=== PATIENT | male | born 1970 | race American Indian/Alaskan Native ===

== ENCOUNTER 2017-08-02 17:33 | Emergency (ER) | payer SELFPAY ==
[2017-08-02] MEDS ORDERED: CATAPRES ONE (18:20)
[2017-08-02] MEDS ORDERED: CATAPRES PO ONE (18:20)
[2017-08-02 18:41] LABS: Basophils % (Auto) 0.7 % (0.0-1.8); Eosinophils # (Auto) 0.1 K/mm3 (0.0-0.4); Eosinophils % (Auto) 1.2 % (0.0-4.3); Hematocrit 39.7 % (35.5-45.6); Hemoglobin 13.4 gm/dl (11.8-15.2); Mean Corpuscular HGB Conc 34 % (32-34); Mean Corpuscular Hemoglobin 29 pg (28-32); Mean Corpuscular Volume 87 fl (84-94); Monocytes # (Auto) 0.3 K/mm3 (0.0-0.8); Monocytes % (Auto) 5.4 % (0.0-7.3); Platelet Count 205 K/mm3 (140-440); Red Blood Count 4.59 M/mm3 (3.65-5.03); Red Cell Distribution Width 13.9 % (13.2-15.2)
[2017-08-02 18:50] LABS: INR 1.02 (0.87-1.13)
[2017-08-02 18:51] LABS: Partial Thromboplastin Time 26.9 Sec. (24.2-36.6)
[2017-08-02 18:59] LABS: BUN/Creatinine Ratio 14; Blood Urea Nitrogen 30 mg/dL (9-20); Calcium 8.7 mg/dL (8.4-10.2); Hemolysis Index 1
--- NOTE | 2017-08-02 20:00 | Cat Scan Report ---
FINAL REPORT EXAM: CT HEAD/BRAIN WO CON HISTORY: HIGH B/P WITH HEADACHE AND LEFT FACIAL TWITCHING TECHNIQUE: CT head without contrast PRIORS: None. FINDINGS: No acute intra-axial or extra-axial hemorrhage is identified. There is no evidence of midline shift or mass effect. The ventricles and sulci are within normal limits. Doran-white matter differentiation is intact. No acute parenchymal abnormalities seen. Bony calvarium is grossly intact. Visualized portions of the mastoids and paranasal sinuses are unremarkable. IMPRESSION: Negative CT head
[2017-08-02 21:09] VITALS: BP 150/108
--- NOTE | 2017-08-02 21:09 | Emergency Department Report ---
ED General Adult HPI - General Chief complaint: Headache Stated complaint: HEAD PAIN Time Seen by Provider: 08/02/17 20:04 Source: patient Mode of arrival: Ambulatory Limitations: No Limitations - History of Present Illness Initial comments: Mr. Miranda is a 46 yo male who presents with headache and chest pain. He had mild headache which is resolved. He's had mild chest pain which is resolved. He stated the chest pain was worse when he moved and lifted heavy objects. He' s been in the [place] for 8-9 months. He moved here from [facility]. He was frustrated that he was unable to fill his medication [id number]. He' s not accustomed to requiring a physician order for his blood pressure medication. He normally obtainshis medication [id number]. He does recall taking lisinopril. For the past 8-9 years that he has had facial droop, left side which has persisted with twitching. He denies arm and leg paralysis. Unclear if this is Saunders palsy or stroke. However the facial droop on the left is not new. He is currently symptom-free. Severity scale (0 -10): 3 - Related Data Previous Rx's Medication Instructions Recorded Last Taken Type Hydrochlorothiazide [HCTZ] 25 mg PO QDAY 90 Days #90 tablet 08/02/17 Unknown Rx amLODIPine [Norvasc] 10 mg PO DAILY 90 Days #90 tab 08/02/17 Unknown Rx Allergies Allergy/AdvReac Type Severity Reaction Status Date / Time No Known Allergies Allergy Unverified 08/02/17 18:04 ED Review of Systems ROS: Stated complaint: HEAD PAIN Other details as noted in HPI Comment: All other systems reviewed and negative Constitutional: denies: fever, malaise Cardiovascular: denies: chest pain Gastrointestinal: denies: abdominal pain, nausea, vomiting ED Past Medical Hx - Past Medical History Previous Medical History?: Yes Hx Hypertension: Yes 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) - Surgical History Past Surgical History?: No - Social History Smoking Status: Never Smoker Substance Use Type: Alcohol, Prescribed - Medications Home Medications: Home Medications Medication Instructions Recorded Confirmed Last Taken Type Hydrochlorothiazide [HCTZ] 25 mg PO QDAY 90 Days #90 tablet 08/02/17 Unknown Rx amLODIPine [Norvasc] 10 mg PO DAILY 90 Days #90 tab 08/02/17 Unknown Rx ED Physical Exam - General Limitations: No Limitations General appearance: alert, in no apparent distress - Head Head exam: Present: atraumatic, normocephalic - Eye Eye exam: Present: normal appearance - ENT ENT exam: Present: mucous membranes moist - Neck Neck exam: Present: normal inspection - Respiratory Respiratory exam: Present: normal lung sounds bilaterally. Absent: respiratory distress, wheezes, rales, rhonchi - Cardiovascular Cardiovascular Exam: Present: regular rate, normal rhythm. Absent: systolic murmur, diastolic murmur, rubs, gallop - GI/Abdominal GI/Abdominal exam: Present: soft, normal bowel sounds. Absent: distended, tenderness, guarding, rebound - Rectal Rectal exam: Present: deferred - Extremities Exam Extremities exam: Present: normal inspection - Back Exam Back exam: Present: normal inspection - Neurological Exam Neurological exam: Present: alert, oriented X3, CN II-XII intact (with the exception of left facial droop and intermittent left facial twitching), normal gait, other (motor 5 out of 5 in all 4 extremity sensation light touch intact [id number] without dysmetria ). Absent: motor sensory deficit - Psychiatric Psychiatric exam: Present: normal affect, normal mood - Skin Skin exam: Present: warm, dry, intact, normal color. Absent: rash ED Course Vital Signs 08/02/17 08/02/17 08/02/17 18:04 18:26 19:03 Temperature 98.9 F 98.2 F Pulse Rate 91 H 91 H 75 Respiratory 18 18 Rate Blood Pressure 231/137 231/137 Blood Pressure [Right] O2 Sat by Pulse 99 99 Oximetry 08/02/17 08/02/17 19:30 20:53 Temperature Pulse Rate 66 62 Respiratory 20 20 Rate Blood Pressure Blood Pressure 152/96 155/98 [Right] O2 Sat by Pulse 100 Oximetry ED Medical Decision Making - Lab Data Result diagrams: 08/02/17 18:20 08/02/17 18:20 Laboratory Results - last 24 hr 08/02/17 08/02/17 08/02/17 18:20 18:20 18:20 WBC 6.0 RBC 4.59 Hgb 13.4 Hct 39.7 MCV 87 MCH 29 MCHC 34 RDW 13.9 Plt Count 205 Lymph % (Auto) 33.0 Scurry % (Auto) 5.4 Eos % (Auto) 1.2 Baso % (Auto) 0.7 Lymph # 2.0 Scurry # 0.3 Eos # 0.1 Baso # 0.0 Seg Neutrophils % 59.7 Seg Neutrophils # 3.6 PT 13.9 INR 1.02 APTT 26.9 Thrombin Time Sodium 144 Potassium 4.2 Chloride 105.8 Carbon Dioxide 27 Anion Gap 15 BUN 30 H Creatinine 2.1 H Estimated GFR 34 BUN/Creatinine Ratio 14 Glucose 147 H Calcium 8.7 Troponin T < 0.010 08/02/17 18:20 WBC RBC Hgb Hct MCV MCH MCHC RDW Plt Count Lymph % (Auto) Scurry % (Auto) Eos % (Auto) Baso % (Auto) Lymph # Scurry # Eos # Baso # Seg Neutrophils % Seg Neutrophils # PT INR APTT Thrombin Time 16.7 Sodium Potassium Chloride Carbon Dioxide Anion Gap BUN Creatinine Estimated GFR BUN/Creatinine Ratio Glucose Calcium Troponin T Vital Signs - 24 hr 08/02/17 08/02/17 08/02/17 18:04 18:26 19:03 Temperature 98.9 F 98.2 F Pulse Rate 91 H 91 H 75 Respiratory 18 18 Rate Blood Pressure 231/137 231/137 Blood Pressure [Right] O2 Sat by Pulse 99 99 Oximetry 08/02/17 08/02/17 08/02/17 19:30 20:53 21:08 Temperature Pulse Rate 66 62 64 Respiratory 20 20 20 Rate Blood Pressure Blood Pressure 152/96 155/98 150/108 [Right] O2 Sat by Pulse 100 97 Oximetry - Medical Decision Making Mr. Miranda presents with severely elevated blood pressure abnormal kidney function. I suspect chronic kidney disease related to severe uncontrolled hypertension. He is currently symptom-free. Chest pain atypical for ACS. I have prescribed amlodipine and hydrochlorothiazide. I did not refill lisinopril with abnormal kidney function. I referred him to outside clinic. I provided 90 day supply of both amlodipine and hydrochlorothiazide. Critical care attestation.: If time is entered above; I have spent that time in minutes in the direct care of this critically ill patient, excluding procedure time. ED Disposition Clinical Impression: Hypertensive urgency, Chronic kidney disease Disposition: DC-01 TO HOME OR SELFCARE Is pt being admited?: No Does the pt Need Aspirin: No Condition: Stable Instructions: Chronic Hypertension (ED) Prescriptions: amLODIPine [Norvasc] 10 mg PO DAILY 90 Days #90 tab Hydrochlorothiazide [HCTZ] 25 mg PO QDAY 90 Days #90 tablet Referrals: PRIMARY CARE, [Primary Care Provider] - 3-5 Days Time of Disposition: 21:13
== END 2017-08-02 21:35 | disposition home or self-care (01) ==
LOC: ED 17:33
DX: I16.0 Hypertensive urgency (principal); I12.9 Hypertensive chronic kidney disease with stage 1 through stage 4 chronic kidney disease, or unspecified chronic kidney disease; N18.9 Chronic kidney disease, unspecified; Z86.73 Personal history of transient ischemic attack (TIA), and cerebral infarction without residual deficits
CPT/HCPCS: 36415; 70450; 80048; 84484; 85025; 85610; 85670; 85730; 93005; 93010

== ENCOUNTER 2017-08-04 05:32 | Emergency (ER) | payer SELFPAY ==
[2017-08-04] MEDS ORDERED: ASPIRIN PO ONE (07:27)
[2017-08-04] MEDS ORDERED: CATAPRES PO ONE (07:29)
[2017-08-04 08:03] LABS: Basophils % (Auto) 0.3 % (0.0-1.8); Eosinophils % (Auto) 0.6 % (0.0-4.3); Hematocrit 43.7 % (35.5-45.6); Hemoglobin 14.9 gm/dl (11.8-15.2); Lymphocytes # (Auto) 1.5 K/mm3 (1.2-5.4); Mean Corpuscular HGB Conc 34 % (32-34); Mean Corpuscular Hemoglobin 29 pg (28-32); Mean Corpuscular Volume 86 fl (84-94); Monocytes # (Auto) 0.3 K/mm3 (0.0-0.8); Monocytes % (Auto) 5.4 % (0.0-7.3); Platelet Count 210 K/mm3 (140-440); Red Blood Count 5.08 M/mm3 (3.65-5.03); Red Cell Distribution Width 13.6 % (13.2-15.2)
[2017-08-04 08:20] LABS: Albumin 4.4 g/dL (3.9-5); Calcium 9.3 mg/dL (8.4-10.2)
[2017-08-04] MEDS ORDERED: ASPIRIN ONE (09:55)
--- NOTE | 2017-08-04 10:52 | Emergency Department Report ---
ED Chest Pain HPI - General Chief Complaint: High BP Stated Complaint: PRESSURE UP Time Seen by Provider: 08/04/17 10:32 Source: patient Mode of arrival: Ambulatory Limitations: No Limitations - History of Present Illness Initial Comments: Patient is a 46-year-old male who presents to emergency room with complaints of high blood pressure, chest pain, shortness of breath with exertion. Patient states that the pain woke him up this morning and is at a 2 out of 10. Patient describes the pain as a pressure and tightness in his left and right chest. Patient states it did not improve with blood pressure improvement. Patient states he's had some dyspnea on exertion that started at the same time this morning. Chest pressure going on for approximately 4 hours. Patient states his blood pressures been so advised and keeping him up at night. Patient states he just recently started a new blood pressure medication 2 days ago. Patient has a long history of blood pressure that only required one medication patient is now on 2 medications. Patient states the pain is better with rest. And worse with exertion. Patient states shortness of breath is at her with rest and worse with exertion. MD Complaint: chest pain -: Sudden Onset: during rest Pain Location: substernal, left chest, right chest Pain Radiation: none Severity: mild Severity scale (0 -10): 2 Quality: tightness, pressure Consistency: constant - Related Data Previous Rx's Medication Instructions Recorded Last Taken Type Hydrochlorothiazide [HCTZ] 25 mg PO QDAY 90 Days #90 tablet 08/02/17 08/04/17 Rx amLODIPine [Norvasc] 10 mg PO DAILY 90 Days #90 tab 08/02/17 08/04/17 Rx Pantoprazole [Protonix TAB] 20 mg PO QDAY #30 tablet. 08/04/17 Unknown Rx Allergies Allergy/AdvReac Type Severity Reaction Status Date / Time No Known Allergies Allergy Unverified 08/02/17 18:04 Heart Score - HEART Score History: Slightly suspicious EKG: Normal Age: 45-65 Risk factors: 1-2 risk factors Troponin: < normal limit HEART Score: 2 ED Review of Systems ROS: Stated complaint: PRESSURE UP Other details as noted in HPI Comment: All other systems reviewed and negative Constitutional: denies: chills, fever Eyes: denies: eye pain, eye discharge, vision change ENT: denies: ear pain, throat pain Respiratory: SOB with exertion. denies: cough, wheezing Cardiovascular: chest pain. 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 08/04/17 Unknown Rx ED Physical Exam - General Limitations: No Limitations General appearance: alert, in no apparent distress - Head Head exam: Present: atraumatic, normocephalic - Eye Eye exam: Present: normal appearance - ENT ENT exam: Present: mucous membranes moist - Neck Neck exam: Present: normal inspection - Respiratory Respiratory exam: Present: normal lung sounds bilaterally. Absent: respiratory distress - Cardiovascular Cardiovascular Exam: Present: regular rate, normal rhythm. Absent: systolic murmur, diastolic murmur, rubs, gallop - GI/Abdominal GI/Abdominal exam: Present: soft, normal bowel sounds - Rectal Rectal exam: Present: deferred - Extremities Exam Extremities exam: Present: normal inspection - Back Exam Back exam: Present: normal inspection - Neurological Exam Neurological exam: Present: alert, oriented X3 - Psychiatric Psychiatric exam: Present: normal affect, normal mood - Skin Skin exam: Present: warm, dry, intact, normal color. Absent: rash ED Course Vital Signs 08/04/17 08/04/17 08/04/17 05:31 07:15 08:27 Temperature 99.0 F 98.7 F Pulse Rate 116 H 89 Respiratory 22 20 Rate Blood Pressure 235/142 219/126 Blood Pressure 130/85 [Right] O2 Sat by Pulse 98 98 Oximetry 08/04/17 08/04/17 08/04/17 09:52 10:48 10:50 Temperature Pulse Rate 86 57 L 68 Respiratory 16 22 13 Rate Blood Pressure 153/103 Blood Pressure 130/86 [Right] O2 Sat by Pulse 99 99 Oximetry 08/04/17 08/04/17 08/04/17 11:00 11:10 11:20 Temperature Pulse Rate 55 L 54 L 69 Respiratory 21 23 12 Rate Blood Pressure 153/103 153/103 153/103 Blood Pressure [Right] O2 Sat by Pulse 100 99 99 Oximetry 08/04/17 08/04/17 08/04/17 11:30 11:40 11:50 Temperature Pulse Rate 57 L 68 53 L Respiratory 13 12 13 Rate Blood Pressure 153/103 153/103 153/103 Blood Pressure [Right] O2 Sat by Pulse 100 98 97 Oximetry 08/04/17 08/04/17 08/04/17 12:00 12:10 12:20 Temperature Pulse Rate 59 L 67 65 Respiratory 13 13 11 L Rate Blood Pressure 153/103 176/114 176/114 Blood Pressure [Right] O2 Sat by Pulse 98 100 99 Oximetry 08/04/17 08/04/17 08/04/17 12:30 12:40 12:50 Temperature Pulse Rate 64 64 58 L Respiratory 13 12 14 Rate Blood Pressure 176/114 176/114 176/114 Blood Pressure [Right] O2 Sat by Pulse 99 98 100 Oximetry 08/04/17 08/04/17 08/04/17 13:00 13:10 13:20 Temperature Pulse Rate 63 72 78 Respiratory 13 23 16 Rate Blood Pressure 176/114 176/114 176/114 Blood Pressure [Right] O2 Sat by Pulse 100 100 100 Oximetry 08/04/17 08/04/17 08/04/17 13:30 13:40 13:50 Temperature Pulse Rate 73 60 60 Respiratory 14 12 13 Rate Blood Pressure 176/114 176/114 176/114 Blood Pressure [Right] O2 Sat by Pulse 100 100 100 Oximetry 08/04/17 08/04/17 08/04/17 14:00 14:10 14:13 Temperature Pulse Rate 90 69 88 Respiratory 12 13 16 Rate Blood Pressure 165/96 165/96 Blood Pressure 153/103 165/85 [Right] O2 Sat by Pulse 99 99 100 Oximetry 08/04/17 08/04/17 08/04/17 14:20 14:30 14:40 Temperature Pulse Rate 79 61 61 Respiratory 22 17 17 Rate Blood Pressure 165/96 165/96 165/96 Blood Pressure [Right] O2 Sat by Pulse 98 100 100 Oximetry 08/04/17 08/04/17 08/04/17 14:50 15:00 15:10 Temperature Pulse Rate 64 79 71 Respiratory 16 33 H 28 H Rate Blood Pressure 165/96 165/96 165/96 Blood Pressure [Right] O2 Sat by Pulse 99 98 98 Oximetry 08/04/17 08/04/17 08/04/17 15:20 15:30 15:40 Temperature Pulse Rate 60 58 L 60 Respiratory 16 14 24 Rate Blood Pressure 165/96 165/96 165/96 Blood Pressure [Right] O2 Sat by Pulse 99 98 98 Oximetry 08/04/17 15:50 Temperature Pulse Rate 69 Respiratory 14 Rate Blood Pressure 165/96 Blood Pressure [Right] O2 Sat by Pulse 99 Oximetry - Reevaluation(s) Reevaluation #1: Initial cardiac workup is normal. We'll consult the hospitalist for admission. Discussed plan of care with patient. He agreed to put plan of care. Blood pressure better after clonidine. We'll continue to monitor patient. 08/04/17 11:00 Reevaluation #2: Discussed case with Dr. Wang. Dr. Wang to assume care of patient. 08/04/17 11:05 TONE score - Tone Score Age > 65: (0) No Aspirin use within the Past 7 Days: (0) No 3 or more CAD Risk Factors: (0) No 2 or more Angina events in past 24 hrs: (0) No Known CAD with more than 50% Stenosis: (0) No Elevated Cardiac Markers: (0) No ST Deviation Greater than 0.5mm: (0) No TONE Score: 0 ED Medical Decision Making - Lab Data Result diagrams: 08/04/17 07:36 08/04/17 07:36 - EKG Data -: EKG Interpreted by Pr EKG shows normal: sinus rhythm, intervals, QRS complexes Rate: normal - EKG Data Interpretation: other (inverted T waves) - Medical Decision Making Patient is a 46-year-old male that presents emergency room and hypertensive urgency and chest pain shortness of breath. Patient will be admitted to the hospitalist service for further evaluation and treatment. - Differential Diagnosis chest pain. ACS. Shortness of breath. Hypertensive urgency. Critical care attestation.: If time is entered above; I have spent that time in minutes in the direct care of this critically ill patient, excluding procedure time. ED Disposition Clinical Impression: Chronic kidney disease, Hypertensive urgency, Dyspnea on exertion Chest pain Qualifiers: Chest pain type: unspecified Qualified Code(s): R07.9 - Chest pain, unspecified Disposition: DC-01 TO HOME OR SELFCARE Is pt being admited?: Yes Does the pt Need Aspirin: No Condition: Serious Prescriptions: Pantoprazole [Protonix TAB] 20 mg PO QDAY #30 tablet. Time of Disposition: 11:14
--- NOTE | 2017-08-04 12:56 | History and Physical Report ---
History of Present Illness Chief complaint: My pressure is high, and my chest hurts History of present illness: 46 YO Male with HTN, Medication Noncompliance presents to ED for evaluation of chest pain. Pt seen and evaluated with Chest pain protocol. serial cardiac enzymes, ekg, and telemetry were negative for ischemia. D dimer was normal. Pt medically optimized and back to usual state of health. Pt found to have symptoms consistent with GERD. Pt initiated on PPI trail. Pt discharged home and instructed to f/u pcp 3-5 days with blood pressure log. Past History Past Medical History: hypertension Past Surgical History: No surgical history, Other (reviewed) Social history: , lives with family Family history: hypertension Medications and Allergies Allergies Allergy/AdvReac Type Severity Reaction Status Date / Time No Known Allergies Allergy Unverified 08/02/17 18:04 Home Medications Medication Instructions Recorded Confirmed Last Taken Type Hydrochlorothiazide [HCTZ] 25 mg PO QDAY 90 Days #90 tablet 08/02/17 08/04/17 Rx amLODIPine [Norvasc] 10 mg PO DAILY 90 Days #90 tab 08/02/17 08/04/17 08/04/17 Rx Pantoprazole [Protonix TAB] 20 mg PO QDAY #30 tablet. 08/04/17 Unknown Rx Review of Systems Constitutional: no weight loss, no weight gain, no fever, no chills Ears, nose, mouth and throat: no ear pain, no ear discharge, no tinnitis, no decreased hearing, no nose pain, no nasal congestion, no nasal discharge Cardiovascular: chest pain, high blood pressure, no orthopnea, no palpitations, no rapid/irregular heart beat, no edema, no syncope, no lightheadedness, no shortness of breath, no dyspnea on exertion, no paroxysmal nocturnal dyspnea, no claudication, no phlebitis Respiratory: no cough, no cough with sputum, no excessive sputum, no hemoptysis Gastrointestinal: no abdominal pain, no nausea, no vomiting, no diarrhea, no constipation Genitourinary Male: no dysuria, no hematuria, no flank pain, no discharge, no urinary frequency, no urinary hesitancy Rectal: no pain, no incontinence, no bleeding Musculoskeletal: no neck stiffness, no neck pain, no shooting arm pain, no arm numbness/tingling, no low back pain Integumentary: no rash, no pruritis, no redness, no sores, no wounds Neurological: no transient paralysis, no paralysis, no weakness, no parathesias Psychiatric: no anxiety, no memory loss, no change in sleep habits, no sleep disturbances, no insomnia Endocrine: no cold intolerance, no heat intolerance, no polyphagia, no excessive thirst, no polydipsia Hematologic/Lymphatic: no easy bruising, no easy bleeding, no lymphadenopathy, no lymphedema Allergic/Immunologic: no urticaria, no allergic rhinitis, no wheezing, no persistent infections, no anaphylaxis, no angioedema Exam - Constitutional Vitals: Temp Pulse Resp BP Pulse Ox 98.7 F 86 16 130/86 99 08/04/17 07:15 08/04/17 09:52 08/04/17 09:52 08/04/17 09:52 08/04/17 09:52 General appearance: Present: obese - EENT Eyes: Present: PERRL ENT: hearing intact, clear oral mucosa - Neck Neck: Present: supple, normal ROM - Respiratory Respiratory effort: normal Respiratory: bilateral: CTA - Cardiovascular Heart Sounds: Present: S1 & S2. Absent: rub, click - Extremities Extremities: pulses symmetrical, No edema Peripheral Pulses: within normal limits - Abdominal General gastrointestinal: Present: soft, non-tender, non-distended, normal bowel sounds Male genitourinary: Present: normal - Integumentary Integumentary: Present: clear, warm, dry - Musculoskeletal Musculoskeletal: gait normal, strength equal bilaterally - Psychiatric Psychiatric: appropriate mood/affect, intact judgment & insight - Neurologic Neurologic: CNII-XII intact, moves all extremities Results - Labs CBC & Chem 7: 08/04/17 07:36 08/04/17 07:36 Labs: Abnormal lab results 08/04/17 08/04/17 Range/Units 07:36 07:36 RBC 5.08 H (3.65-5.03) M/mm3 Sodium 136 L D (137-145) mmol/L BUN 24 H (9-20) mg/dL Creatinine 2.2 H (0.8-1.5) mg/dL Glucose 120 H (75-100) mg/dL Assessment and Plan - Patient Problems (1) GERD (gastroesophageal reflux disease) Status: Acute Qualifiers: Esophagitis presence: without esophagitis Qualified Code(s): K21.9 - Gastro -esophageal reflux disease without esophagitis Plan to address problem: PPI therapy, outpatient f/u with PCP, as well as GI prn (2) Chest pain Status: Acute Qualifiers: Chest pain type: unspecified Qualified Code(s): R07.9 - Chest pain, unspecified Plan to address problem: secondary to GERD, Cardiac workup negative. (3) Chronic kidney disease Status: Acute Plan to address problem: IVF resuscitaiton, f/u pcp 1wk with repeat bmp, outpatient Nephrology f/u 5-7 days with bmp.
[2017-08-04] MEDS ORDERED: NACL 0.9% IV ONE (13:44)
[2017-08-04] MEDS ORDERED: NACL 0.9% 1000 ML 2,000 ML ONE (14:33)
[2017-08-04 15:14] LABS: Amphetamine Screen,Urine PRESUMPTIVE NEGATIVE; Cannabinoid Screen,Urine PRESUMPTIVE NEGATIVE; Cocaine Screen,Urine PRESUMPTIVE NEGATIVE; Methadone Screen,Urine PRESUMPTIVE NEGATIVE; Opiate Screen,Urine PRESUMPTIVE NEGATIVE
[2017-08-04 15:26] LABS: Benzodiazepines Screen,Urine PRESUMPTIVE NEGATIVE
[2017-08-04 16:13] VITALS: BP 165/96
== END 2017-08-04 16:44 | disposition home or self-care (01) ==
LOC: ED 05:32
DX: I16.0 Hypertensive urgency (principal); I12.9 Hypertensive chronic kidney disease with stage 1 through stage 4 chronic kidney disease, or unspecified chronic kidney disease; N18.9 Chronic kidney disease, unspecified; R06.09 Other forms of dyspnea; Z86.73 Personal history of transient ischemic attack (TIA), and cerebral infarction without residual deficits
CPT/HCPCS: 36415; 80053; 80307; 83880; 84484; 85025; 85379; 93005; 93010; 96360; 96361; 99284; J7030; J7040